=== PATIENT | female | born 1960 | race Hispanic/Latino ===

== ENCOUNTER 2021-11-30 12:42 | Emergency (ER) | payer OTHER ==
[2021-11-30] MEDS ORDERED: RABIES VACCINE, HUMAN DIPLOID/PF 2.5 UNIT/ML VIAL IM ONE (13:42)
[2021-11-30] MEDS ORDERED: RABIES IMMUNE GLOBULIN P/F 300 UNIT/ML INJ 5 ML IM ONE (13:42)
--- NOTE | 2021-11-30 15:19 | XRay Report ---
BILATERAL FOOT 3 VIEW(S) INDICATION / CLINICAL INFORMATION: dog bite r/o foreign body COMPARISON: None available. FINDINGS: BONES / JOINT(S): Left: No acute fracture or subluxation. Mild DJD of great toe MTP joint. Degenerative enthesophyte of the calcaneus at the plantar fascia attachment. Small ossific density at the dorsal aspect of the ta lar head likely represent sequela of remote trauma. Right: No acute fracture or subluxation. Mild DJD of great toe MTP joint. SOFT TISSUES: No significant abnormality. No radiopaque foreign body in either foot. ADDITIONAL FINDINGS: None. Signer Name: Ronn Sandoval MD Signed: 11/30/2021 3:15 PM Workstation Name: [id number]
--- NOTE | 2021-11-30 15:22 | Emergency Department Report ---
ED Animal Bite HPI - General Chief Complaint: Animal Bite Stated Complaint: DOG BITE Time Seen by Provider: 11/30/21 13:15 Source: patient Mode of arrival: Ambulatory Limitations: No Limitations - History of Present Illness Initial Comments: This is a 61-year-old female brought by mother nontoxic, well nourished in appearance, no acute signs of distress presents to the ED with c/o of dog bite to bilateral foot that occurred 1 month ago. Patient denies knowing the dog or any rabies updates. Patient denies any head trauma or any other trauma. Patient states that she is up-to-date with tetanus as of last year. Patient denies any fever, chills, nausea, vomiting, headache, stiff neck. Patient denies any allergies. MD Complaint: animal bite -: month(s) Left: Foot, Right: Foot Animal: dog Animal Control Notified: No Description: unknown animal Mechanism: bite Severity scale (0 -10): 3 Context: unprovoked Associated Symptoms: none. denies: erythema, discharge from wound, bleeding, fever, chills, rash, loss of consciousness, cough, headache, diaphoresis, shortness of breath - Related Data Previous Rx's Medication Instructions Recorded Last Taken Type Amoxicillin/Potassium Clav 1 each PO BID #14 tab 11/30/21 Unknown Rx [Augmentin 500-125 Tablet] Allergies Allergy/AdvReac Type Severity Reaction Status Date / Time No Known Allergies Allergy Unverified 11/30/21 13:56 ED Review of Systems ROS: Stated complaint: DOG BITE Other details as noted in HPI Comment: All other systems reviewed and negative Constitutional: denies: chills, fever Eyes: denies: eye pain, eye discharge, vision change ENT: denies: ear pain, throat pain Respiratory: denies: cough, shortness of breath, wheezing Cardiovascular: denies: chest pain, palpitations Endocrine: no symptoms reported Gastrointestinal: denies: abdominal pain, nausea, diarrhea Genitourinary: denies: urgency, dysuria, discharge Musculoskeletal: denies: back pain, joint swelling, arthralgia Skin: denies: rash, lesions Neurological: denies: headache, weakness, paresthesias Psychiatric: denies: anxiety, depression Hematological/Lymphatic: denies: easy bleeding, easy bruising ED Past Medical Hx - Medications Home Medications: Home Medications Medication Instructions Recorded Confirmed Last Taken Type Amoxicillin/Potassium Clav 1 each PO BID #14 tab 11/30/21 Unknown Rx [Augmentin 500-125 Tablet] ED Physical Exam - General Limitations: No Limitations General appearance: alert, in no apparent distress - Head Head exam: Present: atraumatic, normocephalic - Eye Eye exam: Present: normal appearance - Neck Neck exam: Present: normal inspection, full ROM. Absent: lymphadenopathy - Respiratory Respiratory exam: Absent: respiratory distress - Cardiovascular Cardiovascular Exam: Present: regular rate - Extremities Exam Extremities exam: Present: normal inspection, full ROM, normal capillary refill. Absent: tenderness, pedal edema, joint swelling, calf tenderness - Expanded Lower Extremity Exam Left Hip exam: Present: normal inspection (bilateral exam), full ROM (bilateral exam). Absent: tenderness (bilateral exam), swelling (bilateral exam) Upper Leg exam: Present: normal inspection (bilateral exam), full ROM (bilateral exam). Absent: tenderness (bilateral exam), swelling (bilateral exam) Knee exam: Present: normal inspection (bilateral exam), full ROM (bilateral exam). Absent: tenderness (bilateral exam), swelling Lower Leg exam: Present: normal inspection (bilateral exam), full ROM (bilateral exam). Absent: tenderness (bilateral exam), swelling (bilateral exam) Ankle exam: Present: normal inspection (bilateral exam), full ROM (bilateral exam). Absent: tenderness (bilateral exam), swelling (bilateral exam) Foot/Toe exam: Present: normal inspection (bilateral exam), full ROM (bilateral exam), abrasion (bilateral exam), puncture wound (bilateral exam). Absent: tenderness (bilateral exam), swelling (bilateral exam), laceration (bilateral exam), ecchymosis (bilateral exam), deformity (bilateral exam), crepidus (bilateral exam), dislocation (bilateral exam), erythema (bilateral exam), amputation (bilateral exam), foreign body (bilateral exam), calcaneal tenderness (bilateral exam), tenderness at base of 5th metatarsal (bilateral exam), nail avulsion (bilateral exam), subungual hematoma (bilateral exam) Neuro vascular tendon exam: Present: no vascular compromise (bilateral exam) Gait: Positive: observed and normal 1 - bite here 2 - bite here - Back Exam Back exam: Present: normal inspection, full ROM. Absent: tenderness, CVA tenderness (R), CVA tenderness (L), muscle spasm, paraspinal tenderness, vertebral tenderness, rash noted - Neurological Exam Neurological exam: Present: alert, oriented X3, normal gait - Psychiatric Psychiatric exam: Present: normal affect, normal mood - Skin Skin exam: Present: warm, dry, intact, normal color. Absent: rash ED Course Vital Signs 11/30/21 12:57 Temperature 97.6 F Pulse Rate 84 Respiratory 18 Rate Blood Pressure 135/74 [Right] O2 Sat by Pulse 100 Oximetry - Reevaluation(s) Reevaluation #1: 11/30/21 15:22 Patient is speaking in full sentences with no signs of distress noted. Critical care attestation.: If time is entered above; I have spent that time in minutes in the direct care of this critically ill patient, excluding procedure time. ED Disposition Clinical Impression: Dog bite Qualifiers: Encounter type: initial encounter Qualified Code(s): W54.0XXA - Bitten by dog, initial encounter Disposition: HOME / SELF CARE / HOMELESS Is pt being admited?: No Does the pt Need Aspirin: No Condition: Stable Instructions: Animal Bite, Adult, [id number], Rabies Immune Globulin, human RIG solution for injection, VIS, Rabies - [facility] (08/30/2019) Additional Instructions: Follow-up with a primary care doctor in 3-5 days or if symptoms worsen and continue return to emergency room as soon as possible. You must complete the rabies vaccine on days 12/03/2021, 12/10/2021, and 12/17/2021. Prescriptions: Amoxicillin/Potassium Clav [Augmentin 500-125 Tablet] 1 each PO BID #14 tab Referrals: PRIMARY CARE, [Referring] - 3-5 Days SVETLANA BLOUNT MD [Staff Physician] - 3-5 Days Time of Disposition: 16:05 ED Medical Decision Making - Radiology Data [facility] [address] [place] [address] XRay Report Signed Patient: DIGNA MCGRATH MR#: [id number] : 1960 Acct:[id number] Age/Sex: 61 / F A DM Date: 11/30/21 Loc: ED Attending Dr: Ordering Physician: TRAVIS CASTRO NP Date of Service: 11/30/21 Procedure(s): XR foot BILAT 3+V Accession Number(s): [id number] cc: TRAVIS CASTRO NP Fluoro Time In Minutes: BILATERAL FOOT 3 VIEW(S) INDICATION / CLINICAL INFORMATION: dog bite r/o foreign body COMPARISON: None available. FINDINGS: BONES / JOINT(S): Left: No acute fracture or subluxation. Mild DJD of great toe MTP joint. Degenerative enthesophyte of the calcaneus at the plantar fascia attachment. Small ossific density at the dorsal aspect of the talar head likely represent sequela of remote trauma. Right: No acute fracture or subluxation. Mild DJD of great toe MTP joint. SOFT TISSUES: No significant abnormality. No radiopaque foreign body in either foot. ADDITIONAL FINDINGS: None. Signer Name: Ronn Sandoval MD Signed: 11/30/2021 3:15 PM Workstation Name: [id number] Transcribed By: DB Dictated By: RONN SANDOVAL MD Electronically Authenticated By: RONN SANDOVAL MD Signed Date/Time: 11/30/211514 DD/ 12 TD/TT: - Medical Decision Making This is a 61-year-old female that presents with dog bite. Patient is stable was examined by me. Patient received immunoglobulin and rabies vaccine. Patient was instructed to receive the full rabies immunizations on days number 3, 7, and 14. Patient is discharged with Augmentin and Tylenol with codeine and was instructed not to operate any machinery when taking Tylenol with Codeine as this may cause drowsiness. The bite wound has been cleaned with soap and water and a sterile dressing has been applied. Patient was educated on proper wound care. Patient was instructed to Follow-up with a primary care doctor in 3-5 days or if symptoms worsen and continue return to emergency room as soon as possible. At time of discharge, the patient does not seem toxic or ill in appearance. No acute signs of distress noted. Patient agrees to discharge treatment plan of care. No further questions noted by the patient.
[2021-11-30 17:09] VITALS: BP 125/80
== END 2021-11-30 16:53 | disposition home or self-care (01) ==
LOC: ED 12:42
DX: S91.352A Open bite, left foot, initial encounter (principal); S91.351A Open bite, right foot, initial encounter; W54.0XXA Bitten by dog, initial encounter; Y93.89 Activity, other specified; Y92.89 Other specified places as the place of occurrence of the external cause; Y99.8 Other external cause status
CPT/HCPCS: 90375; 90471; 90675; 96372; 99283